=== PATIENT | male | born 1990 | race Caucasian/White ===

== ENCOUNTER 2019-02-06 20:28 | Emergency (ER) | payer SELFPAY ==
[2019-02-06 21:50] LABS: ABS Eosinophils 0.2 10^3/ul (0-0.6); ABS Lymphocytes 1.9 10^3/ul (1.0-4.8); ABS Monocytes 0.6 10^3/ul (0-0.8); ABS Neutrophils 4.5 10^3/ul (1.5-7.7); Eosinophil % 2.1 %; Hematocrit 40 % (42-52); Hemoglobin 13.9 g/dL (14.0-18.0); Lymphocyte % 26.6 %; Mean Corpuscular HGB Conc 35 g/dL (31-36); Mean Corpuscular Hemoglobin 29 pg (27-31); Mean Corpuscular Volume 85 fL (80-94); Mean Platelet Volume 8.2 fL (7.4-10.4); Platelet Count 292 10^3/uL (150-450); Red Blood Count 4.76 10^6 /uL (4.18-5.48); Red Cell Distribution Width 13 % (10-15); White Blood Count 7.3 10^3/uL (3.5-10.8)
[2019-02-06 22:07] LABS: Albumin 4.7 g/dL (3.2-5.2); Albumin/Globulin Ratio 1.8 (1-3); Calcium 9.8 mg/dL (8.6-10.3); EGFR African American 106.2 (>60); EGFR Non-African American 87.7 (>60); Globulin 2.6 g/dL (2-4); Total Bilirubin 0.2 mg/dL (0.2-1.0); Total Protein 7.3 g/dL (6.4-8.9)
[2019-02-06 22:40] LABS: Potassium 4.3 mmol/L (3.5-5.0)
--- NOTE | 2019-02-06 22:45 | ED ---
HPI Chest Pain - HPI Summary HPI Summary: 28-year-old male presents with chest pain today. He states the last a couple minutes and vomiting and left-sided chest pain. She denies currently having chest pain. History of right-sided chest pain that resolved after 10 minutes. He admits to shortness breath that resolved with chest pain. No palpitations. States he's had had beverly pain for the past week. No nausea vomiting. No bowel pain. No recent illness. Pain is unchanged with movement. Denies any current symptoms. States feels a little anxious. - History of Current Complaint Chief Complaint: EDChestPainROMI Time Seen by Provider: 02/06/19 21:26 Pain Intensity: 4 - Allergy/Home Medications Allergies/Adverse Reactions: Allergies Allergy/AdvReac Type Severity Reaction Status Date / Time Sulfa (Sulfonamide Allergy Difficulty Verified 02/06/19 20:35 Antibiotics) Breathing/Wheezing PMH/Surg Hx/FS Hx/Imm Hx Endocrine/Hematology History: Denies: Hx Anticoagulant Therapy Respiratory History: Reports: Hx Asthma Infectious Disease History: No Infectious Disease History: Denies: Traveled Outside the [place] in Last 30 Days - Family History Known Family History: Positive: Blood Disorder - Social History Alcohol Use: None Substance Use Type: Reports: None Smoking Status (MU): Never Smoked Tobacco Review of Systems Negative: Fever Positive: Chest Pain Positive: Shortness Of Breath. Negative: Cough Negative: Abdominal Pain All Other Systems Reviewed And Are Negative: Yes Physical Exam Triage Information Reviewed: Yes Vital Signs On Initial Exam: Initial Vitals Temp Pulse Resp BP Pulse Ox 97.9 F 99 16 163/104 95 02/06/19 20:31 02/06/19 20:31 02/06/19 20:31 02/06/19 20:31 02/06/19 20:31 Vital Signs Reviewed: Yes Appearance: Positive: Well-Appearing Skin: Positive: Warm, Dry Head/Face: Positive: Normal Head/Face Inspection Eyes: Positive: Normal, Conjunctiva Clear ENT: Positive: Pharynx normal Respiratory/Lung Sounds: Positive: Clear to Auscultation, Breath Sounds Present Cardiovascular: Positive: Normal, RRR Abdomen Description: Positive: Nontender, Soft Bowel Sounds: Positive: Present Musculoskeletal: Positive: Normal Neurological: Positive: Normal Psychiatric: Positive: Normal Diagnostics - Vital Signs Vital Signs Temp Pulse Resp BP Pulse Ox 02/06/19 20:31 97.9 F 99 16 163/104 95 - Laboratory Lab Results: Lab Results 02/06/19 02/06/19 02/06/19 Range/Units 21:43 21:43 21:43 WBC 7.3 (3.5-10.8) 10^3/uL RBC 4.76 (4.18-5.48) 10^6 /uL Hgb 13.9 L (14.0-18.0) g/dL Hct 40 L (42-52) % MCV 85 (80-94) fL MCH 29 (27-31) pg MCHC 35 (31-36) g/dL RDW 13 (10-15) % Plt Count 292 (150-450) 10^3/uL MPV 8.2 (7.4-10.4) fL Neut % (Auto) 62.2 % Lymph % (Auto) 26.6 % [place] % (Auto) 8.7 % Eos % (Auto) 2.1 % Baso % (Auto) 0.4 % Absolute Neuts (auto) 4.5 (1.5-7.7) 10^3/ul Absolute Lymphs (auto) 1.9 (1.0-4.8) 10^3/ul Absolute Monos (auto) 0.6 (0-0.8) 10^3/ul Absolute Eos (auto) 0.2 (0-0.6) 10^3/ul Absolute Basos (auto) 0.0 (0-0.2) 10^3/ul Absolute Nucleated RBC 0.0 10^3/ul Nucleated RBC % 0.0 D-Dimer, Quantitative < 200 (Less Than 230) ng/mL Sodium 139 (135-145) mmol/L Potassium 4.3 (3.5-5.0) mmol/L Chloride 106 (101-111) mmol/L Carbon Dioxide 26 (22-32) mmol/L Anion Gap 7 (2-11) mmol/L BUN 18 (6-24) mg/dL Creatinine 1.00 (0.67-1.17) mg/dL Est GFR ( Amer) 106.2 (>60) Est GFR (Non-Af Amer) 87.7 (>60) BUN/Creatinine Ratio 18.0 (8-20) Glucose 101 H (70-100) mg/dL Calcium 9.8 (8.6-10.3) mg/dL Total Bilirubin 0.20 (0.2-1.0) mg/dL AST 18 (13-39) U/L ALT 22 (7-52) U/L Alkaline Phosphatase 43 (34-104) U/L Troponin I 0.00 (<0.04) ng/mL Total Protein 7.3 (6.4-8.9) g/dL Albumin 4.7 (3.2-5.2) g/dL Globulin 2.6 (2-4) g/dL Albumin/Globulin Ratio 1.8 (1-3) Result Diagrams: 02/06/19 21:43 02/06/19 21:43 Lab Statement: Any lab studies that have been ordered have been reviewed, and results considered in the medical decision making process. - Radiology chest Radiology Interpretation Completed By: ED Physician Summary of Radiographic Findings: no active disease Chest Pain Course/Dx - Course Course Of Treatment: 28-year-old male presents with chest pain today. He states the last a couple minutes and vomiting and left-sided chest pain. She denies currently having chest pain. History of right-sided chest pain that resolved after 10 minutes. He admits to shortness breath that resolved with chest pain. No palpitations. States he's had had beverly pain for the past week. No nausea vomiting. No bowel pain. No recent illness. Pain is unchanged with movement. Denies any current symptoms. States feels a little anxious. On exam lungs clear auscultation. Heart regular rhythm. EKG shows sinus tachycardia. Lab work without significant abnormality. troponin zero. d-dimer negative. Chest x-ray normal. Explained did not find cardiac reason for pain. Patient understands agrees with plan. - Chest Pain Differential Diagnosis/HQI/PQRI: Angina, Chest Wall, Pulmonary Embolism - Diagnoses Provider Diagnoses: Atypical chest pain Discharge - Sign-Out/Discharge Documenting (check all that apply): Patient Departure Patient Received Moderate/Deep Sedation with Procedure: No - Discharge Plan Condition: Good Disposition: HOME Patient Education Materials: Noncardiac Chest Pain (ED) Referrals: No Primary Care Phys,NOPCP [Primary Care Provider] - Additional Instructions: take tyenlol as needed for pain Follow up with primary return to ED if develop any new or worsening symptoms - Billing Disposition and Condition Condition: GOOD Disposition: Home
[2019-02-06 23:27] VITALS: BP 119/79
== END 2019-02-06 23:26 | disposition home or self-care (01) ==
LOC: ED 20:28
DX: R07.89 Other chest pain (principal); R06.02 Shortness of breath; R00.0 Tachycardia, unspecified; Z88.2 Allergy status to sulfonamides
CPT/HCPCS: 36415; 71045; 80053; 84484; 85025; 85379; 93005; 99282